=== PATIENT | female | born 1985 | race Caucasian/White ===

== ENCOUNTER 2018-08-08 06:29 | Day surgery (SDC) | payer OTHER ==
[~2018-08-08] VITALS: Ht 180.3 cm; Wt 77.5 kg
[~2018-08-08 06:29] MED LIST: IBUP-1222 PO; IBUP200T49 PO; LISI2.5T PO; MULT-658 PO; NITR100C PO; NORE-88 PO; OXYC-302 PO
[2018-08-08] MEDS ORDERED: SODIUM CHLORIDE 0.9% 1,000 ML IV SCH (06:55)
[2018-08-08 07:28] VITALS: BP 111/73
[2018-08-08] MEDS ORDERED: LIDOCAINE-MPF 1%, 5ML ONE (07:31)
[2018-08-08 07:41] LABS: INTERNATIONAL NORMALIZED RATIO 1.02 (0.93-1.1); PROTHROMBIN TIME 10.8 Seconds (9.6-11.5)
[2018-08-08 07:53] LABS: HCG UR SG 1.025 (1.003-1.030)
[2018-08-08] MEDS ORDERED: FENTANYL PF 100 MCG/2ML ONE (07:58)
[2018-08-08] MEDS ORDERED: MIDAZOLAM 1 MG/ML, 5ML ONE ×2 (07:58→07:59)
[2018-08-08] MEDS ORDERED: NALOXONE 1 MG/ML, 2ML ONE (07:59)
[2018-08-08] MEDS ORDERED: FLUMAZENIL 0.1 MG/1 ML, 5ML ONE (07:59)
== END 2018-08-08 10:25 | disposition home or self-care (01) ==
LOC: OUT 06:29
PROVIDERS: ATTEND Surgery
DX: R80.9 Proteinuria, unspecified (principal); N18.2 Chronic kidney disease, stage 2 (mild); K51.90 Ulcerative colitis, unspecified, without complications; M48.9 Spondylopathy, unspecified; Z98.890 Other specified postprocedural states
CPT/HCPCS: 36415; 50200; 77012; 81025; 85610; 88300; 99156; J2250; J3010; J7030; 99157; J2310

== ENCOUNTER 2019-01-16 06:11 | Outpatient (CLI) | payer OTHER ==
[~2019-01-16] VITALS: Ht 180.3 cm; Wt 74.7 kg
[2019-01-16 09:40] VITALS: BP 116/73
[2019-01-16] MEDS ORDERED: INFLIXIMAB IV ONE (10:00)
[2019-01-16] MEDS ORDERED: SODIUM CHLORIDE 0.9% IV ONE (10:00)
[2019-01-16] MEDS ORDERED: FILTER 1.2 MICRON IV ONE (10:00)
[2019-01-16] MEDS ORDERED: INFL100V IV (12:27)
== END 2019-01-16 23:59 | disposition home or self-care (01) ==
LOC: INFUSION 06:11
PROVIDERS: ATTEND Internal Medicine
DX: K51.80 Other ulcerative colitis without complications (principal); M12.9 Arthropathy, unspecified
CPT/HCPCS: 96365; 96366; J1745; J7050

== ENCOUNTER 2019-01-16 12:18 | Emergency (ER) | payer OTHER ==
[~2019-01-16] VITALS: Ht 180.3 cm; Wt 75.0 kg
--- NOTE | 2019-01-16 12:24 | NUR ---
PATIENT SENT [facility] TODAY AFTER GETTING INFUSION FOR ULCERATIVE COLITIS, PATIENT REPORTS HAVING CHEST PAIN X 2 WEEKS, RADIATING TO LT SHOULDER STARTING YESTERDAY. DENIES CARDIAC HX. 22 LT AC ESTABLISHED IN [facility]. EKG COMPLETED BY EMT. 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
[2019-01-16] MEDS ORDERED: INFL100V IV (12:27)
[2019-01-16 12:46] LABS: BASOPHILS # (AUTO) 0.03 x10^3/uL (0-0.1); BASOPHILS % (AUTO) 0 % (0-1); EOSINOPHILS # (AUTO) 0.16 x10^3/uL (0-0.4); EOSINOPHILS % (AUTO) 2 % (1-7); LYMPHOCYTES # (AUTO) 4.39 x10^3/uL (1-3.4); LYMPHOCYTES % (AUTO) 45 % (22-44); MD NO; MEAN CORPUSCULAR HEMOGLOBIN 30.4 pg (27.0-34.8); MEAN PLATELET VOLUME 10.3 fL (7.4-10.4); MONOCYTES # (AUTO) 0.47 x10^3/uL (0.2-0.8); MONOCYTES % (AUTO) 5 % (2-9); NEUTROPHILS # (AUTO) 4.72 x10^3/uL (1.8-6.8); NEUTROPHILS % (AUTO) 48 % (42-75); PLATELET COUNT 274 x10^3/uL (130-400); RED BLOOD COUNT 4.55 x10^6/uL (3.82-5.3); RED CELL DISTRIBUTION WIDTH 14.1 % (9.6-15.2)
--- NOTE | 2019-01-16 12:52 | NUR ---
20 RT AC ESTABLISHED FOR CTA, AWAITING CTA.
[2019-01-16 12:59] LABS: ANION GAP 8 mmol/L (5-15); CALCIUM 8.5 mg/dL (8.5-10.1); CHLORIDE 111 mmol/L (98-107); CREATININE 0.93 mg/dL (0.55-1.02)
[2019-01-16 13:03] LABS: TROPONIN I < 0.015 ng/mL (0.000-0.045)
--- NOTE | 2019-01-16 13:43 | NUR ---
PATIENT IN CT.
[2019-01-16] MEDS ORDERED: OMNIPAQUE 350 MG/ML, 100ML BOTTLE ONE (13:54)
--- NOTE | 2019-01-16 14:13 | NUR ---
RESULTS BACK, CHART UP FOR RECHECK.
--- NOTE | 2019-01-16 15:08 | NUR ---
Lunch Coverage: assumed care of pt on behalf of primary RN for lunch break only. MD at bedside for recheck
--- NOTE | 2019-01-16 15:10 | NUR ---
THIS RN BEDSIDE DURING BREAST EXAM WITH DR. HOUGH. PT TOLERATED WITH NO COMPLICATIONS.
[2019-01-16 15:45] VITALS: BP 99/48
== END 2019-01-16 15:49 | disposition home or self-care (01) ==
LOC: ED 13:28
DX: R07.1 Chest pain on breathing (principal)
CPT/HCPCS: 36415; 71275; 80048; 82040; 83880; 84484; 85025; 93005; 99284; Q9967

== ENCOUNTER 2019-04-10 09:32 | Outpatient (CLI) | payer OTHER ==
[~2019-04-10] VITALS: Ht 180.3 cm; Wt 76.0 kg
[~2019-04-10 09:32] MED LIST changes: +INFL100V IV
[2019-04-10 09:53] VITALS: BP 113/79
[2019-04-10] MEDS ORDERED: SODIUM CHLORIDE 0.9% IV ONE (10:00)
[2019-04-10] MEDS ORDERED: FILTER 1.2 MICRON IV ONE (10:00)
[2019-04-10] MEDS ORDERED: INFLIXIMAB IV ONE (10:00)
== END 2019-04-10 23:59 | disposition home or self-care (01) ==
LOC: INFUSION 09:32
PROVIDERS: ATTEND Internal Medicine
DX: K51.80 Other ulcerative colitis without complications (principal); M12.9 Arthropathy, unspecified
CPT/HCPCS: 96365; 96366; J1745; J7050